=== PATIENT | female | born 1975 | race Caucasian/White ===

== ENCOUNTER 2018-12-23 19:15 | Emergency (ER) | payer MEDICAID | END 2018-12-23 20:14 | disposition home or self-care (01) | LOC: FTE 19:15 | DX: J02.9 Acute pharyngitis, unspecified (principal) | CPT/HCPCS: 99283; Z7502 ==

== ENCOUNTER 2019-01-20 16:48 | Emergency (ER) | payer MEDICAID ==
[2019-01-20] MEDS: DEXAMETHASONE 10 MG/ML 1 ML INJ IM (19:20)
== END 2019-01-20 19:26 | disposition home or self-care (01) ==
LOC: FTE 19:26
DX: J02.9 Acute pharyngitis, unspecified (principal)
CPT/HCPCS: 96372; 99284-25